=== PATIENT | male | born 1995 | race Two or more races ===

== ENCOUNTER → 2021-03-12 | Emergency (ER) | payer OTHER ==
[~2021-03-12] VITALS: Ht 167.6 cm; Wt 68.0 kg
[~2021-03-12] MED LIST: ACETAMINOPHEN 325 MG TAB PO ONE; ETOMIDATE (2MG/ML) 20ML VIAL IV ONE; IOHEXOL 300 MG/ML 100ML BOTTLE IJ ONE; SUCCINYLCHOLINE CHLORIDE 20 MG/ML 10ML VIAL IV ONE
[2021-03-12 04:03] LABS: Basophils # (auto) 0 10 ^3/uL (0-0.2); Basophils % (auto) 0.2 % (0.0-2.0); Eosinophils # (auto) 0 10 ^3/uL (0-0.8); Eosinophils % (auto) 0.3 % (0.0-7.0); Hematocrit 44.6 % (41.0-53.0); Lymphocytes # (auto) 1.8 10 ^3/uL (0.4-5.4); Lymphocytes % (auto) 15.5 % (10.0-50.0); Mean Corpuscular Hemoglobin 28.3 pg (28.0-32.0); Mean Corpuscular Hgb Conc. 33.7 g/dL (32.0-36.0); Monocytes # (auto) 0.8 10 ^3/uL (0-1.3); Monocytes % (auto) 7.1 % (0.0-12.0); Neutrophils # (auto) 8.9 10 ^3/uL (1.6-8.6); Neutrophils % (auto) 76.9 % (37.0-80.0); Red Blood Cells 5.31 10^6/uL (4.5-5.90); Red Cell Distribution Width 12.1 % (11.8-14.3); White Blood Cell 11.6 10^3/uL (4.4-10.8)
[2021-03-12 04:15] VITALS: BP 112/82
[2021-03-12 04:25] LABS: Albumin 4.6 g/dL (3.4-5.0); Calcium 9.1 mg/dL (8.5-10.1); INR 1.17 (0.9-1.15); Partial Thromboplastin Time 25.9 sec (23.6-33.0); Potassium 3.6 mmol/L (3.5-5.1)
[2021-03-12 04:28] LABS: BUN/Creatinine Ratio 11.3; Bilirubin, Total 0.8 mg/dL (0.2-1.0); Total Protein 8.4 g/dL (6.4-8.2)
== END ==
LOC: ER 02:40 → EDBD 02:40
DX: M25.562 Pain in left knee (principal); M25.561 Pain in right knee; R07.9 Chest pain, unspecified; E11.9 Type 2 diabetes mellitus without complications; I10 Essential (primary) hypertension; V49.9XXA Car occupant (driver) (passenger) injured in unspecified traffic accident, initial encounter; Y93.89 Activity, other specified; Y92.89 Other specified places as the place of occurrence of the external cause; Y99.8 Other external cause status
CPT/HCPCS: 36415; 70450; 71260; 72125; 74177; 80053; 85025; 85610; 85730; 99284; Q9967